=== PATIENT | male | born 1980 | race Caucasian/White ===

== ENCOUNTER 2024-11-11 15:37 | Emergency (ER) | payer SELFPAY ==
[2024-11-11 16:06] LABS: #Basophils 0.09 10x3/uL (0.0-0.2); #Eosinophils 0.22 10x3/uL (0.0-0.7); #Monocytes 0.82 10x3/uL (0.11-0.59); #Neutrophils 6.73 10x3/uL (1.40-6.50); %Basophils 0.9 % (0.0-1.0); %Eosinophils 2.1 % (0.0-10.0); %Lymphocytes 24.6 % (21.0-51.0); %Monocytes 7.8 % (0.0-10.0); %Neutrophils 64.3 % (42.0-75.0); Hematocrit 46.4 % (42.0-52.0); Hemoglobin 15.8 g/dL (14.0-18.0); Mean Corpuscular Hemoglobin 29.0 pg (27.0-31.0); Mean Corpuscular Volume 85.3 fL (78.0-98.0); Platelet Count 292 10x3/uL (130-400); Red Blood Cell (RBC) Count 5.44 mill/uL (4.70-6.10); White Blood Cell (WBC) Count 10.47 10x3/uL (4.8-10.8)
[2024-11-11 16:34] LABS: ALT (SGPT) 36 U/L (Less than 45); AST (SGOT) 38 U/L (11-34); Albumin 4.9 g/dL (3.1-4.5); Alkaline Phosphatase 68 U/L (40-110); Anion Gap 14 mmol/L (10-20); BUN (Urea Nitrogen) 14 mg/dL (8.9-20.6); Bilirubin, Total 0.7 mg/dL (0.3-1.2); Calc. Creatinine Clearance 0 mL/min (70-130); Calcium 9.6 mg/dL (7.8-10.44); Carbon Dioxide 28 mmol/L (22-29); Chloride 103 mmol/L (98-107); Globulin 3.1 g/dL (2.4-3.5); Glucose 103 mg/dL (70-105); Potassium 4.0 mmol/L (3.5-5.1); Sodium 141 mmol/L (136-145)
[2024-11-11] MEDS ORDERED: Aspirin Chewable 81 MG TAB ONE (16:36)
[2024-11-11] MEDS ORDERED: Lidocaine Viscous Sol 2% 15 ml UD Cup ONE (16:36)
[2024-11-11] MEDS ORDERED: Mag-Al 1200 mg/1200 mg/30 ML UDCUP ONE (16:36)
== END 2024-11-11 17:50 | disposition home or self-care (01) ==
LOC: ERS 15:37
DX: R07.9 Chest pain, unspecified (principal); R94.4 Abnormal results of kidney function studies; Z87.891 Personal history of nicotine dependence
CPT/HCPCS: 36415; 71045; 80053; 83690; 84484; 85025; 93005